=== PATIENT | male | born 1970 | race Caucasian/White ===

== ENCOUNTER 2019-07-09 08:08 | Emergency (ER) | payer OTHER ==
--- NOTE | 2019-07-09 14:38 | ER ---
REASON FOR EMERGENCY ROOM VISIT: Tarry stools. HISTORY: This 49-year-old man comes in with a 2-day history of some night sweats, restless sleep, sleeping habits and the passage of tarry stools. He states that since the onset he has either been somewhat constipated or had loose stools that have been alternating, but throughout this whole process over the past 2 days. He states his stools have been black in color. He has not had any pain. He denies any dyspepsia. He possibly has a history of GERD, but he does have a history of having had H pylori gastritis a couple of years ago, which was treated with what sounds like H pylori treatment regimen. He does admit to drinking approximately 2 or 3 beers per day on the average. He has no other history of acid peptic disease. He has no lower GI symptoms to speak of prior to the onset of this illness. PAST MEDICAL HISTORY: 1. Old knee injury. 2. GERD. 3. H pylori gastritis. 4. Hypertension. 5. Kinney to the left shoulder and right forearm area. MEDICATIONS: Include metoprolol and lisinopril (see EMR). ALLERGIES: NONE TO MEDICATIONS. 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 He is single. He has no children. He does chew tobacco, but does not smoke. He denies any illicit drug use. REVIEW OF SYSTEMS: Pertinent positives and negatives as listed in the HPI. PHYSICAL EXAMINATION: GENERAL: Reveals a pleasant healthy man, who is alert and in no distress. VITAL SIGNS: He is afebrile, heart rate is 99, blood pressure is 144/92 without an orthostatic drop, his respiratory rate is 20, O2 sats 100% on room air. HEENT: Head is normocephalic. There is no scleral icterus. No conjunctivitis. Oropharynx is normal. NECK: Supple. No adenopathy. CHEST: Clear to auscultation with good air exchange bilaterally and no wheezes, rhonchi, or rales. CARDIAC: Regular rate without murmur. ABDOMEN: Soft, nontender, and nondistended. There is no hepatosplenomegaly. He does have a small reducible umbilical hernia. RECTAL: He has some soft dark green Hemoccult-positive stool. No mass was felt. EXTREMITIES: Normal pulses. No edema. He has scarring from kinney involving his left shoulder and right forearm area. LABORATORY DATA: His hemoglobin is 9.4, his WBC is 6.6, platelet count is 122. His PT is 9.9 with an INR of 1.0, PTT is 21.3. His CMP, he has a mild hypokalemia with a potassium of 3.3. His anion gap is 15.5. Remainder of his electrolytes are normal. His BUN is 31 with creatinine of 1.2 and an estimated GFR of greater than 60. His glucose is 204. His total bilirubin 1.3, which is borderline elevated. His AST is elevated at 76, his alkaline phosphatase and ALT are not elevated. His stool for H pylori antigen was positive. IMPRESSION: Upper gastrointestinal bleeding with positive H pylori antigen. PLAN: I discussed the patient with Dr. Jenkins, a general surgeon from [place], and he agrees the patient should have an endoscopy done. He will be calling the patient to have this set up for tomorrow. In the meantime, I recommended Pepto-Bismol q.i.d., omeprazole 40 mg p.o. b.i.d., clarithromycin 500 mg b.i.d. This will all be given for 14 days as an H pylori regimen. I still think he should be endoscoped. He agrees with this and understands. I discussed symptoms and signs of active bleeding such as hypotension, hematemesis, bright red blood per rectum, dizziness, lightheadedness, etc. Should he experience any of these, he should get a hold of us or return for another evaluation. I also advised him to abstain from any alcohol until he has been completely treated. He understands and agrees. All questions were answered. They will be contacting him by phone from [place] to set up his endoscopy. YESENIA /[phone]
== END 2019-07-09 10:25 | disposition home or self-care (01) ==
LOC: LB.ED 08:08
DX: K92.2 Gastrointestinal hemorrhage, unspecified (principal); B96.81 Helicobacter pylori [H. pylori] as the cause of diseases classified elsewhere; I10 Essential (primary) hypertension; F17.220 Nicotine dependence, chewing tobacco, uncomplicated
CPT/HCPCS: 36415; 80053; 85025; 85610; 85730; 87338; 99284

== ENCOUNTER 2020-05-16 23:35 | Emergency (ER) | payer OTHER ==
[2020-05-17] MEDS ORDERED: Ketorolac 60 MG/2 ML SDV IVPUSH ONE (00:03)
[2020-05-17] MEDS ORDERED: Sodium Chloride 0.9% 1,000 ML IV ONE (00:04)
--- NOTE | 2020-05-17 00:09 | EDM.PDOC ---
ED HPI GENERAL MEDICAL PROBLEM - General Chief Complaint: Abdominal Pain Stated Complaint: abd pain Time Seen by Provider: 05/17/20 00:00 Source of Information: Reports: Patient History Limitations: Reports: No Limitations - History of Present Illness INITIAL COMMENTS - FREE TEXT/NARRATIVE: Patient is a 50 y/o male, who admits to drinking beer daily, who presents with epigastric pain x 3 hours. He states it feels like "an elephant sitting on me." Pain is constant and patient complains that he can't sleep due to the pain. No N/V/D. Normal bowel movements. Patient denies chest pain or shortness of breath. - Related Data Allergies Allergy/AdvReac Type Severity Reaction Status Date / Time No Known Allergies Allergy Verified 07/09/19 08:51 Home Meds: Home Meds Metoprolol Succinate 50 mg PO DAILY 07/09/19 [History] lisinopriL [Lisinopril] 40 mg PO DAILY 07/09/19 [History] Past Medical History Cardiovascular History: Reports: Hypertension Musculoskeletal History: Reports: Other (See Below) Other Musculoskeletal History: knee pain Social & Family History - Family History Family Medical History: Noncontributory - Caffeine Use Caffeine Use: Reports: Soda ED ROS GENERAL - Review of Systems Review Of Systems: See Below Constitutional: Reports: No Symptoms HEENT: Reports: No Symptoms Respiratory: Reports: No Symptoms Cardiovascular: Reports: No Symptoms GI/Abdominal: Reports: Abdominal Pain : Reports: No Symptoms Musculoskeletal: Reports: No Symptoms Skin: Reports: No Symptoms Neurological: Reports: No Symptoms ED EXAM, GI/ABD - Physical Exam Exam: See Below Exam Limited By: No Limitations General Appearance: Alert, No Apparent Distress Head: Atraumatic, Normocephalic Respiratory/Chest: No Respiratory Distress, Lungs Clear, Normal Breath Sounds, No Accessory Muscle Use, Chest Non-Tender Cardiovascular: Normal Peripheral Pulses, Regular Rate, Rhythm, No Murmur GI/Abdominal Exam: Soft, No Distention, Tender, Abnormal Bowel Sounds, Other (Diffuse tenderness; sluggish BS x 4) Neurological: Alert, Oriented, CN II-XII Intact, Normal Cognition, No Motor/Sensory Deficits Psychiatric: Normal Affect Skin Exam: Warm, Dry, Intact, Normal Color, No Rash EKG INTERPRETATION EKG Date: 05/17/20 Time: 00:40 Rhythm: NSR Rate (Beats/Min): 80 [place]ike: Normal P-Wave: Present QRS: Normal ST-T: Normal QT: Normal Course - Vital Signs Text/Narrative:: Elevated WBC and lactic. Ordered CT chest/abd/pel with contrast, but tech changed it to without. Patient given fluids and toradol. Imaging with RLQ small bowel obstruction. Spoke with Dr. Zhang (surgery) at [place], [place] and Dr. Rodriguez (hospitalist) will accept patient. Will fly patient. NG tube and morphine ordered. Patient is NPO. Last Recorded V/S: Last Vital Signs Temp 36.5 C 05/16/20 23:50 Pulse 71 05/16/20 23:50 Resp 18 05/16/20 23:50 BP 183/103 H 05/16/20 23:50 Pulse Ox 98 05/16/20 23:50 - Orders/Labs/Meds Orders: Active Orders 24 hr Category Date Time Status EKG Documentation Completion [RC] ASDIRECTED Care 05/17/20 00:03 Active Abdomen 1V Upright [CR] Stat Exams 05/17/20 02:19 Ordered Chest 1V Frontal [CR] Stat Exams 05/17/20 02:19 Ordered Chest Abdomen Pelvis wo Cont [CT] Stat Exams 05/17/20 01:14 Taken Sodium Chloride 0.9% [Normal Saline] 1,000 ml Med 05/17/20 01:15 Active IV ASDIRECTED NG [Nasogastric Orogastric Tube Insertion] [OM.PC] Oth 05/17/20 02:19 Ordered Routine Medication Orders Sodium Chloride (Normal Saline) 1,000 mls @ 1,000 mls/hr IV ASDIRECTED ABDELRAHMAN Labs: Laboratory Tests 05/17/20 05/17/20 05/17/20 Range/Units 00:26 00:26 00:26 WBC 16.2 H D (4.0-11.0) K/uL RBC 4.08 L (4.50-6.50) M/uL Hgb 16.1 D (13.0-18.0) g/dL Hct 42.6 D (40.0-54.0) % MCV 104 H (76-96) fL MCH 39.5 H (27.0-32.0) pg MCHC 37.8 H (31.0-35.0) g/dL RDW 12.3 (11.0-16.0) % Plt Count 242 D (150-400) K/uL MPV 9.5 (6.0-10.0) fL Neut % (Auto) 88.2 H (45.0-70.0) % Lymph % (Auto) 7.7 L (20.0-40.0) % [place] % (Auto) 3.4 (3.0-10.0) % Eos % (Auto) 0.1 L (1.0-5.0) % Baso % (Auto) 0.6 H (0.0-0.5) % Neut # (Auto) 14.31 H (2.00-7.50) K/uL Lymph # (Auto) 1.25 L (1.50-4.00) K/uL [place] # (Auto) 0.55 (0.20-0.80) K/uL Eos # (Auto) 0.01 L (0.04-0.40) K/uL Baso # (Auto) 0.09 (0.02-0.10) K/uL Sodium 139 (136-145) mmol/L Potassium 3.3 L (3.5-5.1) mmol/L Chloride 97 L (98-107) mmol/L Carbon Dioxide 25.9 (21.0-32.0) mmol/L Anion Gap 19.4 H (5.0-15.0) mmol/L BUN 12 D (8-26) mg/dL Creatinine 1.00 (0.70-1.30) mg/dL Est Cr Clr Drug Dosing TNP Estimated GFR (MDRD) > 60 (>60) MLS/MIN BUN/Creatinine Ratio 12.0 (6-25) Glucose 151 H (74-100) mg/dL Lactic Acid 4.9 H (0.4-2.0) mmol/L Calcium 9.1 (8.5-10.1) mg/dL Total Bilirubin 0.5 D (0.0-1.0) mg/dL AST 146 H (15-37) U/L ALT 74 (12-78) U/L Alkaline Phosphatase 55 (46-116) U/L Troponin I < 0.017 (0.000-0.060) ng/mL Total Protein 8.0 (6.4-8.2) g/dL Albumin 4.0 (3.4-5.0) g/dL Globulin 4.0 (2.2-4.2) g/dL Albumin/Globulin Ratio 1.0 (0.8-2.0) Amylase 81 (25-115) U/L Lipase 158 (73-393) U/L Ethyl Alcohol 179.0 H (<3.0) mg/dL Meds: Medications Generic Name Dose Route Start Last Admin Trade Name Freq PRN Reason Stop Dose Admin Sodium Chloride 1,000 mls @ 1,000 mls/hr 05/17/20 01:15 Normal Saline IV ASDIRECTED ABDELRAHMAN Discontinued Medications Generic Name Dose Route Start Last Admin Trade Name Freq PRN Reason Stop Dose Admin Sodium Chloride 1,000 mls @ 1,000 mls/hr 05/17/20 00:04 05/17/20 00:16 Normal Saline IV 05/17/20 01:03 1,000 mls/hr .BOLUS ONE Administration Ketorolac Tromethamine 30 mg 05/17/20 00:03 05/17/20 00:15 Toradol IVPUSH 05/17/20 00:04 30 mg ONETIME ONE Administration Morphine Sulfate 4 mg 05/17/20 02:22 Morphine IVPUSH 05/17/20 02:23 ONETIME ONE Departure - Departure Time of Disposition: 02:45 Disposition: DC/Tfer to Hospice-Med Fac 51 Condition: Good Clinical Impression: Small bowel obstruction - Discharge Information *PRESCRIPTION DRUG MONITORING PROGRAM REVIEWED*: Not Applicable *COPY OF PRESCRIPTION DRUG MONITORING REPORT IN PATIENT FRANSISCA: Not Applicable Instructions: Bowel Obstruction, [id number] Sepsis Event Note (ED) - Focused Exam Vital Signs: Vital Signs Temp Pulse Resp BP Pulse Ox 05/16/20 23:50 36.5 C 71 18 183/103 H 98 - My Orders Last 24 Hours: My Active Orders 05/17/20 00:03 EKG Documentation Completion [RC] ASDIRECTED 05/17/20 01:14 Chest Abdomen Pelvis wo Cont [CT] Stat 05/17/20 01:15 Sodium Chloride 0.9% [Normal Saline] 1,000 ml IV ASDIRECTED 05/17/20 02:19 Abdomen 1V Upright [CR] Stat Chest 1V Frontal [CR] Stat NG [Nasogastric Orogastric Tube Insertion] [OM.PC] Routine - Assessment/Plan Last 24 Hours: My Active Orders 05/17/20 00:03 EKG Documentation Completion [RC] ASDIRECTED 05/17/20 01:14 Chest Abdomen Pelvis wo Cont [CT] Stat 05/17/20 01:15 Sodium Chloride 0.9% [Normal Saline] 1,000 ml IV ASDIRECTED 05/17/20 02:19 Abdomen 1V Upright [CR] Stat Chest 1V Frontal [CR] Stat NG [Nasogastric Orogastric Tube Insertion] [OM.PC] Routine
[2020-05-17] MEDS ORDERED: Sodium Chloride 0.9% 1,000 ML IV SCH (01:15)
[2020-05-17] MEDS ORDERED: Morphine 4 MG/ML VIAL IVPUSH ONE (02:22)
--- NOTE | 2020-05-17 10:07 | CT ---
DATE OF SERVICE: 05/17/20 CLINICAL DATA: epigastric pain UNENHANCED CHEST CT: Multislice acquisition through the chest without IV contrast was performed. No priors. The lungs are clear. No pleural effusions. No pneumothorax. The heart size is normal. There are moderate coronary artery calcifications. No significant pericardial effusion. No aortic aneurysm. No hilar or mediastinal adenopathy. There is degenerative disc disease throughout the thoracic spine. There is compression deformity of the T12 vertebra, age indeterminate. IMPRESSION: No acute abnormalities. UNENHANCED ABDOMEN AND PELVIC CT: Multislice axial acquisition without IV or oral contrast was performed. No priors. There is diffuse fatty infiltration of the liver. No focal hepatic lesions. The gallbladder appears normal. No calcified gallstones. The spleen appears normal. The pancreas appears normal. The right and left adrenals appear normal. The right and left kidneys appear normal. No nephrocalcinosis or nephrolithiasis. No hydronephrosis or hydroureter. The bladder is partially fluid-filled. There is mild diffuse bladder wall thickening. This is probably related to nondistension. Cystitis should be considered. There are multiple distended gas and fluid-filled loops of small bowel throughout the abdomen. They contain scattered air-fluid levels. There is a transition point within the mid ileum. The findings are consistent with an obstruction or localized ileus. There is free fluid noted within the pelvis and adjacent to the spleen consistent with ascites. No free air. No adenopathy. No aortic aneurysm. There is a fat-containing umbilical hernia. No other significant findings. The patient's physician was notified of the findings by telephone and by [facility] Preliminary Radiology report. [id number] [facility]
== END 2020-05-17 03:25 ==
LOC: LB.ED 23:35
DX: K56.609 Unspecified intestinal obstruction, unspecified as to partial versus complete obstruction (principal); I10 Essential (primary) hypertension; Z79.899 Other long term (current) drug therapy
CPT/HCPCS: 36415; 43752; 71250; 74176; 80053; 80307; 82150; 83605; 83690; 84484; 85025; 93005; 96361; 96374; 96375; 99285; 99285-25; A0425; A0429; J1885; J2270; J7030

== ENCOUNTER 2021-06-21 13:02 | Emergency (ER) | payer OTHER ==
[2021-06-21] MEDS ORDERED: GI Cocktail Oral Solution 30 ML PO ONE (13:17)
[2021-06-21] MEDS ORDERED: Pantoprazole 80 MG in Sodium Chloride 0.9% 100 ML IV ONE (15:55)
[2021-06-21] MEDS ORDERED: Pantoprazole 40 MG Vial ONE (15:58)
--- NOTE | 2021-06-21 18:24 | CT ---
Date of Service: 06/21/21 Clinical Data: Epigastric pain - Hgb 6.2 [address] AND PELVIC CT: Multislice axial acquisition through the abdomen and pelvis without IV or oral contrast was performed. Comparison is made to a prior exam dated 05/17/20. There are minimal atelectatic changes of the dependent portions of both lower lungs. There are small bilateral pleural effusions. The heart size is normal. Minimal pericardial effusion. The blood pool within the ventricles appears hypodense with respect to the cardiac muscle suggesting anemia. There is a small hiatal hernia. There is mural thickening in the distal esophagus. Esophagitis should be considered. The unenhanced liver appears normal. No focal hepatic lesions. The gallbladder appears normal. No calcified gallstones. No pericholecystic fluid. The spleen appears normal. The pancreas appears normal. The right and left adrenals appear normal. The right and left kidneys appear normal. No nephrocalcinosis or nephrolithiasis. No hydronephrosis or hydroureter. The bladder is partially fluid filled. There is mild diffuse bladder wall thickening. Cystitis should be considered. No evidence of appendicitis. There are scattered air-fluid levels throughout the ascending and transverse colon and throughout the small bowel. No distended loops of bowel. Enterocolitis should be considered. There is a small duodenal diverticulum. There is free fluid noted adjacent to the liver and spleen and within the pelvis. No free air. No adenopathy. No aortic aneurysm. There is subtle fat stranding involving the root of the mesentery probably related to the ascites. There is fat and fluid within a small umbilical hernia. There is degenerative disk disease throughout the lower thoracic and lumbar spine. There is partial compression fracture of T11. It is unchanged from the prior CT scan. [id number] [facility]
--- NOTE | 2021-06-21 19:02 | EDM.PDOC ---
ED HPI GENERAL MEDICAL PROBLEM - General Chief Complaint: Chest Pain Stated Complaint: CHEST PAIN Time Seen by Provider: 06/21/21 13:15 - History of Present Illness INITIAL COMMENTS - FREE TEXT/NARRATIVE: Pt comes to the ER with C/O epigastric pain that he has had for khushboo 3 days. He feels a little SOB at times, but has remained active. He has been on Omeprazole in the past, but has been off it for almost 1 yr. He denies any recent fall or injury. Denies cough, nausea, vomiting, heartburn, rectal bleeding or black stools. Lower Sternum Pain Score (Numeric/FACES): 7 - Related Data Allergies Allergy/AdvReac Type Severity Reaction Status Date / Time No Known Allergies Allergy Verified 06/21/21 13:18 Home Meds: Home Meds Metoprolol Succinate 25 mg PO DAILY 07/09/19 [History] lisinopriL [Lisinopril] 40 mg PO DAILY 07/09/19 [History] Past Medical History Cardiovascular History: Reports: Hypertension Musculoskeletal History: Reports: Other (See Below) Other Musculoskeletal History: knee pain Social & Family History - Family History Family Medical History: No Pertinent Family History - Tobacco Use Tobacco Use Status *Q: Former Tobacco User Used Tobacco, but Quit: No - Caffeine Use Caffeine Use: Reports: Soda ED ROS GENERAL - Review of Systems Review Of Systems: Comprehensive ROS is negative, except as noted in HPI. Respiratory: Reports: Shortness of Breath (at times.) GI/Abdominal: Reports: Abdominal Pain (in the epigastric area.) ED EXAM, GENERAL - Physical Exam Exam: See Below GI/Abdominal: Other (tenderness in the epigastric area with palpation. No gaurding. B.S. are present.) Course - Vital Signs Last Recorded V/S: Last Vital Signs Temp 99.4 F 06/21/21 16:50 Pulse 82 06/21/21 16:50 Resp 16 06/21/21 16:50 BP 169/95 H 06/21/21 16:50 Pulse Ox 99 06/21/21 16:50 - Orders/Labs/Meds Orders: Active Orders 24 hr Category Date Time Status OCC BLD DIAGNOS BY IMMUNOASSAY [OP] Stat Lab 06/21/21 15:24 Ordered PACKED CELLS [RED BLOOD CELLS LP] [BBK] Stat Lab 06/21/21 14:35 Results PATIENT RETYPE [BBK] Stat Lab 06/21/21 14:35 Results TYPE AND SCREEN [BBK] Stat Lab 06/21/21 14:35 Results Labs: Laboratory Tests 06/21/21 06/21/21 06/21/21 Range/Units 13:16 13:31 13:31 WBC 8.5 D (4.0-11.0) K/uL RBC 2.24 L (4.50-6.50) M/uL Hgb 6.5 L* D (13.0-18.0) g/dL Hct 21.4 L D (40.0-54.0) % MCV 96 (76-96) fL MCH 29.0 D (27.0-32.0) pg MCHC 30.4 L (31.0-35.0) g/dL RDW 17.7 H (11.0-16.0) % Plt Count 204 (150-400) K/uL MPV 8.9 (6.0-10.0) fL Neut % (Auto) 92.6 H (45.0-70.0) % Lymph % (Auto) 2.0 L (20.0-40.0) % [place] % (Auto) 5.3 (3.0-10.0) % Eos % (Auto) 0.0 L (1.0-5.0) % Baso % (Auto) 0.1 (0.0-0.5) % Neut # (Auto) 7.85 H (2.00-7.50) K/uL Lymph # (Auto) 0.17 L (1.50-4.00) K/uL [place] # (Auto) 0.45 (0.20-0.80) K/uL Eos # (Auto) 0.00 L (0.04-0.40) K/uL Baso # (Auto) 0.01 L (0.02-0.10) K/uL Sodium 133 L (136-145) mmol/L Potassium 4.0 D (3.5-5.1) mmol/L Chloride 98 (98-107) mmol/L Carbon Dioxide 25.2 (21.0-32.0) mmol/L Anion Gap 13.8 (5.0-15.0) mmol/L BUN 14 (8-26) mg/dL Creatinine 1.33 H D (0.70-1.30) mg/dL Est Cr Clr Drug Dosing 69.20 mL/min Estimated GFR (MDRD) 56 L (>60) MLS/MIN BUN/Creatinine Ratio 10.5 (6-25) Glucose 200 H D (74-100) mg/dL Calcium 8.1 L (8.5-10.1) mg/dL Total Bilirubin 0.5 (0.0-1.0) mg/dL AST 12 L (15-37) U/L ALT 14 (12-78) U/L Alkaline Phosphatase 31 L (46-116) U/L Total Protein 6.1 L (6.4-8.2) g/dL Albumin 3.1 L (3.4-5.0) g/dL Globulin 3.0 (2.2-4.2) g/dL Albumin/Globulin Ratio 1.0 (0.8-2.0) Lipase 130 (73-393) U/L Urine Color Yellow Urine Appearance Clear (CLEAR) Urine pH 7.0 (5.0-8.0) Ur Specific [place] 1.020 (1.003-1.030) Urine Protein 30 H (NEGATIVE) mg/dL Urine Glucose (UA) Negative (NEGATIVE) mg/dL Urine Ketones 15 H (NEGATIVE) mg/dL Urine Occult Blood Negative (NEGATIVE) Urine Nitrite Negative (NEGATIVE) Urine Bilirubin Small H (NEGATIVE) Urine Urobilinogen 0.2 (0.2-1.0) E.U./dL Ur Leukocyte Esterase Negative (NEGATIVE) Urine RBC 0-5 H /HPF Urine WBC 0-5 H /HPF Ur Squamous Epith Cells Rare /HPF Blood Type Gel Antibody Screen Crossmatch Crossmatch IS Only 06/21/21 Range/Units 14:35 WBC (4.0-11.0) K/uL RBC (4.50-6.50) M/uL Hgb (13.0-18.0) g/dL Hct (40.0-54.0) % MCV (76-96) fL MCH (27.0-32.0) pg MCHC (31.0-35.0) g/dL RDW (11.0-16.0) % Plt Count (150-400) K/uL MPV (6.0-10.0) fL Neut % (Auto) (45.0-70.0) % Lymph % (Auto) (20.0-40.0) % [place] % (Auto) (3.0-10.0) % Eos % (Auto) (1.0-5.0) % Baso % (Auto) (0.0-0.5) % Neut # (Auto) (2.00-7.50) K/uL Lymph # (Auto) (1.50-4.00) K/uL [place] # (Auto) (0.20-0.80) K/uL Eos # (Auto) (0.04-0.40) K/uL Baso # (Auto) (0.02-0.10) K/uL Sodium (136-145) mmol/L Potassium (3.5-5.1) mmol/L Chloride (98-107) mmol/L Carbon Dioxide (21.0-32.0) mmol/L Anion Gap (5.0-15.0) mmol/L BUN (8-26) mg/dL Creatinine (0.70-1.30) mg/dL Est Cr Clr Drug Dosing mL/min Estimated GFR (MDRD) (>60) MLS/MIN BUN/Creatinine Ratio (6-25) Glucose (74-100) mg/dL Calcium (8.5-10.1) mg/dL Total Bilirubin (0.0-1.0) mg/dL AST (15-37) U/L ALT (12-78) U/L Alkaline Phosphatase (46-116) U/L Total Protein (6.4-8.2) g/dL Albumin (3.4-5.0) g/dL Globulin (2.2-4.2) g/dL Albumin/Globulin Ratio (0.8-2.0) Lipase (73-393) U/L Urine Color Urine Appearance (CLEAR) Urine pH (5.0-8.0) Ur Specific [place] (1.003-1.030) Urine Protein (NEGATIVE) mg/dL Urine Glucose (UA) (NEGATIVE) mg/dL Urine Ketones (NEGATIVE) mg/dL Urine Occult Blood (NEGATIVE) Urine Nitrite (NEGATIVE) Urine Bilirubin (NEGATIVE) Urine Urobilinogen (0.2-1.0) E.U./dL Ur Leukocyte Esterase (NEGATIVE) Urine RBC /HPF Urine WBC /HPF Ur Squamous Epith Cells /HPF Blood Type B POSITIVE Gel Antibody Screen Negative Crossmatch See Detail Crossmatch IS Only See Detail Meds: Medications Discontinued Medications Generic Name Dose Route Start Last Admin Trade Name Tate PRN Reason Stop Dose Admin Al Hydroxide/Mg Hydroxide 30 ml 06/21/21 13:17 06/21/21 13:29 Gi Cocktail Oral Solution 30 Ml PO 06/21/21 13:18 30 ml ONETIME ONE Administration Pantoprazole Sodium 80 mg/ 100 mls @ 200 mls/hr 06/21/21 15:55 06/21/21 16:00 Sodium Chloride IV 06/21/21 16:24 200 mls/hr .BOLUS ONE Administration Pantoprazole Sodium Confirm 06/21/21 15:58 06/21/21 16:18 Pantoprazole 40 Mg Vial Administered 06/21/21 15:59 Not Given Dose 80 mg .ROUTE .STK-MED ONE - Re-Assessments/Exams Free Text/Narrative Re-Assessment/Exam: 06/21/21 18:55 Labs show a Hgb of 6.5 - this was repeated with results of 6.2 CT Abd shows a hypodense blood pool in the left ventricle, consistent with anemia. 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 He denies any fatigue, low Blood pressure, rectal bleeding or black stool. He tells me he has been using 6-8 Motrin a day. He has Hx of anemia 2 yrs ago, and was scoped without any findings he tells me. We will give him 2 units of Packed red cells. Protonix was given IV. He will be discharged home.Do not use any NSAID's. Tylenol for pain. Protonix will be given daily. He is informed he will need endoscopy [facility], and have it done in [place]. I feel he needs it done within 1 week. He is stable with no active bleeding at this time. Follow up in the ER here as needed. He agree's with the tx plan and has no other questions. Departure - Departure Time of Disposition: 22:00 Disposition: Home, Self-Care 01 Condition: Good Clinical Impression: Anemia Qualifiers: Anemia type: iron deficiency Iron deficiency anemia type: chronic blood loss Qualified Code(s): D50.0 - Iron deficiency anemia secondary to blood loss (chronic) - Discharge Information *PRESCRIPTION DRUG MONITORING PROGRAM REVIEWED*: No *COPY OF PRESCRIPTION DRUG MONITORING REPORT IN PATIENT FRANSISCA: No Instructions: Blood Transfusion, Adult, [id number], Blood Transfusion, Adult, Care After, [id number] Referrals: PCP,None [Primary Care Provider] - Forms: ED Department Discharge Additional Instructions: Discharge home - No NSAID's, Tylenol only for pain. Activity as tolerated. He needs Endoscopy within a few days. [facility] to [facility]. Take Protonix daily as directed. Call back with any questions, or come back as needed. Sepsis Event Note (ED) - Evaluation Sepsis Screening Result: No Definite Risk - Focused Exam Vital Signs: Vital Signs Temp Temp Pulse Resp BP Pulse Ox 06/21/21 16:50 99.4 F 82 16 169/95 H 99 06/21/21 13:12 98.3 F 97 16 160/88 H 100 - My Orders Last 24 Hours: My Active Orders 06/21/21 14:35 PACKED CELLS [RED BLOOD CELLS LP] [BBK] Stat PATIENT RETYPE [BBK] Stat TYPE AND SCREEN [BBK] Stat 06/21/21 15:24 OCC BLD DIAGNOS BY IMMUNOASSAY [OP] Stat - Assessment/Plan Last 24 Hours: My Active Orders 06/21/21 14:35 PACKED CELLS [RED BLOOD CELLS LP] [BBK] Stat PATIENT RETYPE [BBK] Stat TYPE AND SCREEN [BBK] Stat 06/21/21 15:24 OCC BLD DIAGNOS BY IMMUNOASSAY [OP] Stat
== END 2021-06-21 21:35 | disposition home or self-care (01) ==
LOC: LB.ED 13:02
DX: D50.0 Iron deficiency anemia secondary to blood loss (chronic) (principal); I10 Essential (primary) hypertension; Z87.891 Personal history of nicotine dependence; Z79.899 Other long term (current) drug therapy
CPT/HCPCS: 36415; 36430; 74176; 80053; 81001; 83690; 85025; 86850; 86900; 86901; 86920; 86922; 96365; 99284; A9270; C9113; P9016

== ENCOUNTER 2022-06-13 09:51 | Emergency (ER) | payer OTHER ==
[2022-06-13] MEDS ORDERED: Metoprolol Tartrate 25 MG Tab PO ONE (10:38)
[2022-06-13] MEDS ORDERED: Oxymetazoline 0.05% Nasal Spray 15 ML Bottle NAS ONE (10:39)
[2022-06-13] MEDS ORDERED: hydrOXYzine HCl 25 MG Tab PO ONE (11:00)
[2022-06-13 11:07] VITALS: PULSE 89
[2022-06-13 11:18] VITALS: BP 153/83
== END 2022-06-13 11:21 | disposition home or self-care (01) ==
LOC: LB.ED 09:51
DX: R04.0 Epistaxis (principal); I10 Essential (primary) hypertension; Z79.899 Other long term (current) drug therapy
CPT/HCPCS: 99283; A9270

== ENCOUNTER 2023-06-09 12:37 | Emergency (ER) | payer OTHER ==
[2023-06-09] MEDS ORDERED: Sodium Chloride 0.9% 1,000 ML IV ONE (13:04)
[2023-06-09] MEDS ORDERED: Sodium Chloride 0.9% 10 ML Syringe FLUSH PRN (13:05)
[2023-06-09 13:20] LABS: HEMATOCRIT 28.1 % (40.0-54.0); HEMOGLOBIN 9.4 g/dL (13.0-18.0); MEAN CORPUSCULAR HEMOGLOBIN 35.6 pg (27.0-32.0); MEAN CORPUSCULAR HGB CONC 33.5 g/dL (31.0-35.0); MEAN CORPUSCULAR VOLUME 106 fL (76-96); MEAN PLATELET VOLUME 8.9 fL (6.0-10.0); PLATELET COUNT,PLT 402 K/uL (150-400); RED BLOOD CELL COUNT 2.64 M/uL (4.50-6.50); RED CELL DISTRIBUTION WIDTH 14.8 % (11.0-16.0); WHITE BLOOD CELL COUNT,WBC 9.4 K/uL (4.0-11.0)
[2023-06-09 13:26] LABS: APPEARANCE,URINE CLEAR (CLEAR); BILIRUBIN,URINE SMALL (NEGATIVE); COLOR,URINE YELLOW; GLUCOSE,URINE NEGATIVE (NEGATIVE); KETONES,URINE NEGATIVE (NEGATIVE); LEUKOCYTE ESTERASE,URINE NEGATIVE (NEGATIVE); NITRITE,URINE NEGATIVE (NEGATIVE); OCCULT BLOOD,URINE NEGATIVE (NEGATIVE); PH,URINE 6.5 (5.0-8.0); PROTEIN,URINE 30 mg/dL (NEGATIVE)
[2023-06-09 13:32] LABS: HYALINE CASTS,URINE OCCASIONAL /HPF; RBC,URINE NOT SEEN /HPF; SQUAMOUS EPITHELIAL CELLS,UR OCCASIONAL /HPF; WBC,URINE 0-5 /HPF
[2023-06-09 13:37] LABS: AMPHETAMINES SCREEN, URINE NEGATIVE (NEGATIVE); BARBITURATE SCREEN,URINE NEGATIVE (NEGATIVE); BENZODIAZEPINES SCREEN,URINE NEGATIVE (NEGATIVE); METHADONE SCREEN, URINE NEGATIVE (NEGATIVE); METHAMPHETAMINES SCREEN, URINE NEGATIVE (NEGATIVE); OXYCODONE SCREEN,URINE NEGATIVE (NEGATIVE); THC SCREEN,URINE 50 NG/ML NEGATIVE (NEGATIVE)
[2023-06-09 13:38] LABS: A/G RATIO 0.8 (0.8-2.0); ALBUMIN 3.3 g/dL (3.4-5.0); ANION GAP 15.6 mmol/L (5.0-15.0); BILIRUBIN TOTAL 0.8 mg/dL (0.0-1.0); BUN/CREATININE RATIO 9.6 (6-25); CALCIUM 8.6 mg/dL (8.5-10.1); CARBON DIOXIDE,CO2 29.8 mmol/L (21.0-32.0); CREATININE 1.14 mg/dL (0.70-1.30); EST CRCL DRUG DOSING (CG) 78.9 mL/min; POTASSIUM,K 3.4 mmol/L (3.5-5.1); PROTEIN TOTAL,TP 7.3 g/dL (6.4-8.2)
[2023-06-09 13:47] LABS: ANISOCYTOSIS FEW; MICROCYTOSIS RARE; OVALOCYTES OCCASIONAL; POIKILOCYTOSIS FEW
[2023-06-09 13:48] LABS: PLATELET COUNT ESTIMATE ADEQUATE; STOMATOCYTES FEW
[2023-06-09] MEDS ORDERED: Magnesium Oxide 400 MG Tab PO ONE (14:05)
[2023-06-09] MEDS ORDERED: Magnesium Sulfate/Water 2 GM in Premix Bag 1 BAG IV ONE (14:13)
[2023-06-09] MEDS ORDERED: Magnesium Sulfate/Water 50 ML ONE (14:30)
[2023-06-09] MEDS ORDERED: Sodium Chloride 0.9% 1,000 ML IV SCH (15:00)
[2023-06-09] MEDS ORDERED: Potassium Chloride Riders 10 MEQ in Premix Bag 1 BAG IV ONE (15:43)
== END 2023-06-09 16:54 ==
LOC: LB.ED 12:37
DX: I63.9 Cerebral infarction, unspecified (principal); E87.6 Hypokalemia; E83.42 Hypomagnesemia; I10 Essential (primary) hypertension; Z79.899 Other long term (current) drug therapy
CPT/HCPCS: 36415; 70450; 80053; 80307; 81001; 82140; 82947; 83735; 85025; 96361; 96365; 96367; 99285; J3475; J3480; J7030; A0425; A0429